=== PATIENT | female | born 1990 | race African-American/Black ===

== ENCOUNTER 2020-08-26 16:01 | Emergency (ER) | payer OTHER ==
[~2020-08-26] VITALS: Ht 162.6 cm; Wt 63.5 kg
[~2020-08-26 16:01] MED LIST: FLAGYL500 MG ORAL; NKM; VIBRAMYCIN100 MG ORAL
[2020-08-26] MEDS ORDERED: Tylenol #3 tab (300mg/30mg) ORAL ONE (16:45)
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
[2020-08-26 17:15] VITALS: BP 124/65
[2020-08-26] MEDS ORDERED: ACETAMINOPHEN-1 EAC1 ORAL (17:32)
[2020-08-26] MEDS ORDERED: Bacitracin Oint UD TOPIC ONE (17:45)
[2020-08-26] MEDS ORDERED: Tetanus/Diptheria/Pertussis IM ONE (17:45)
[2020-08-26 18:06] VITALS: BP 124/65
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
== END 2020-08-26 18:06 | disposition home or self-care (01) ==
LOC: EMR 17:55
DX: S02.2XXA Fracture of nasal bones, initial encounter for closed fracture (principal); Y04.2XXA Assault by strike against or bumped into by another person, initial encounter; Y93.9 Activity, unspecified; Y92.9 Unspecified place or not applicable
CPT/HCPCS: 70450; 70486; 90471; 90715; Z7502; 99284